=== PATIENT | male | born 1980 | race Caucasian/White ===

== ENCOUNTER 2020-11-14 16:17 | Emergency (ER) | payer MEDICAID ==
[2020-11-14] MEDS ORDERED: Morphine 4 MG/ML VIAL IVPUSH ONE (16:47)
[2020-11-14] MEDS ORDERED: Morphine 2 MG/ML SYRINGE IM ONE (16:56)
[2020-11-14 17:11] LABS: CHLORIDE,CL 105 mEq/L (98-106); SODIUM,NA 142 mEq/L (136-145)
--- NOTE | 2020-11-14 17:18 | EDM.PDOC ---
ED HPI GENERAL MEDICAL PROBLEM - General Chief Complaint: General Stated Complaint: LT BIG TOE -TURNING BLACK,LT FOOT BURNING Time Seen by Provider: 11/14/20 16:35 Source of Information: Reports: Patient History Limitations: Reports: No Limitations - History of Present Illness INITIAL COMMENTS - FREE TEXT/NARRATIVE: Jesús is a 39 yo male who presents to the ED with initial concerns of left big toe pain. States after he got out of the shower the tip of his toe was black. Admits to history of severe peripheral vascular disease and multiple heart attacks. Had 2-vessel CABG in 2010. States the toe isn't black anymore and would also like to be seen for his right flank pain. Admits he has been dealing with the pain for quite some time and has been having ureteral stent exchanged every 3 months or so. States he has a 14mm stone that is to big to pass. States he was in the ED in [place] a couple days ago d/t the flank pain. States he did have a CT scan and labs done. Admits to blood in his urine which has been ongoing as well. Requesting something for the pain. l great toe Pain Score (Numeric/FACES): 10 - Related Data Allergies Allergy/AdvReac Type Severity Reaction Status Date / Time sulfamethoxazole Allergy Hives Verified 11/14/20 16:26 [From Bactrim] trimethoprim [From Bactrim] Allergy Hives Verified 11/14/20 16:26 Home Meds: Home Meds Gabapentin [Neurontin] 600 mg PO TID 11/14/20 [History] Oxybutynin 10 mg PO TID 11/14/20 [History] Tamsulosin [Tamsulosin 24 Hr] 0.4 mg PO DAILY 11/14/20 [History] Warfarin [Coumadin] 7.5 mg PO DAILY 11/14/20 [History] traMADol [Ultram] 50 mg PO BID PRN 11/14/20 [History] Past Medical History Cardiovascular History: Reports: High Cholesterol, Hypertension, [place], PVD Genitourinary History: Reports: Renal Calculus - Past Surgical History Cardiovascular Surgical History: Reports: Vascular Surgery, Other (See Below) Other Cardiovascular Surgeries/Procedures: multiple venous stents in legs Social & Family History - Family History Family Medical History: No Pertinent Family History - Tobacco Use Tobacco Use Status *Q: Current Every Day Tobacco User Years of Tobacco use: 15 Packs/Tins Daily: 2 - Caffeine Use Caffeine Use: Reports: None - Recreational Drug Use Recreational Drug Use: No ED ROS GENERAL - Review of Systems Review Of Systems: See Below Constitutional: Denies: Fever, Chills HEENT: Reports: No Symptoms Respiratory: Reports: No Symptoms Cardiovascular: Reports: No Symptoms GI/Abdominal: Reports: Bloody Stool (villa red, minimal amount on occasion.). Denies: Abdominal Pain, Nausea, Vomiting : Reports: Flank Pain, Hematuria. Denies: Discharge, Dysuria, Urgency, Urinary Retention Musculoskeletal: Reports: Back Pain (right flank pain) Skin: Reports: Change in Color (short intermittent change in color of toe. ) Neurological: Reports: No Symptoms ED EXAM, GENERAL - Physical Exam Exam: See Below Exam Limited By: No Limitations General Appearance: Alert, WD/WN, Mild Distress Head: Atraumatic, Normocephalic Neck: Normal Inspection Respiratory/Chest: No Respiratory Distress, Lungs Clear, Normal Breath Sounds, No Accessory Muscle Use Cardiovascular: Regular Rate, Rhythm, No Edema, No Murmur GI/Abdominal: Normal Bowel Sounds, Soft, No Distention Back Exam: No: CVA Tenderness (L), CVA Tenderness (R) Extremities: Non-Tender, No Pedal Edema, Normal Capillary Refill Neurological: Alert, Oriented, Normal Cognition Psychiatric: Normal Affect, Normal Mood Skin Exam: Warm, Dry, Intact, Normal Color, No Rash. No: Pallor, Wound/Incision Course - Vital Signs Last Recorded V/S: Last Vital Signs Temp 97.8 F 11/14/20 16:28 Pulse 84 11/14/20 16:28 Resp 18 11/14/20 16:28 BP 127/87 11/14/20 16:46 Pulse Ox 96 11/14/20 16:28 - Orders/Labs/Meds Orders: Active Orders 24 hr Category Date Time Status Abdomen Pelvis wo Cont [CT] Stat Exams 11/14/20 16:47 Taken CULTURE URINE [RM] Stat Lab 11/14/20 17:01 Received Acetaminophen/oxyCODONE [Take Home: Acetaminophen/ Med 11/14/20 17:23 Once oxyCODON, 2 Tab Pack] 2 packet PO ONETIME ONE Ciprofloxacin [Take Home: Ciprofloxacin 500 MG, 2 Tab Med 11/14/20 17:24 Once Pack] 1 packet PO ONETIME ONE Lidocaine 1% [Xylocaine-MPF 1%] Med 11/14/20 17:22 Stat 2.1 ml INJECT NOW STA cefTRIAXone [Rocephin] Med 11/14/20 17:22 Once 1 gm IM ONETIME ONE Labs: Laboratory Tests 11/14/20 11/14/20 11/14/20 Range/Units 17:01 17:01 17:01 WBC 8.6 (4.0-11.0) 10^3/uL RBC 5.70 (4.50-6.00) x10^6/uL Hgb 17.1 (14.0-18.0) g/dL Hct 49.6 (42.0-52.0) % MCV 87.0 (83.0-97.0) fL MCH 30.0 (27.0-32.0) pg MCHC 34.5 (32.0-36.0) g/dL RDW Coeff of Balbir 14.7 (11.0-15.0) % Plt Count 264 (150-400) 10^3/uL Immature Gran % (Auto) 0.1 (0.0-4.9) % Neut % (Auto) 63.9 (41-71) % Lymph % (Auto) 26.2 (24-44) % [place] % (Auto) 6.0 (0-10) % Eos % (Auto) 3.6 (0-6) % Baso % (Auto) 0.2 (0-1) % Neut # (Auto) 5.46 (1.80-8.00) x10^3/uL Lymph # (Auto) 2.24 (0.60-5.00) 10^3/uL [place] # (Auto) 0.51 (0.00-1.50) 10^3/uL Eos # (Auto) 0.31 (0.00-1.50) 10^3/uL Baso # (Auto) 0.02 (0.00-0.50) 10^3/uL Immature Gran # (Auto) 0.01 (0.00-0.49) 10^3/uL PT (9.7-12.3) SEC INR (0.92-1.18) Sodium 142 (136-145) mEq/L Potassium 3.9 (3.5-5.0) mEq/L Chloride 105 (98-106) mEq/L Carbon Dioxide 25 (21-32) mmol/L BUN 15 (7-18) mg/dL Creatinine 1.2 (0.7-1.3) mg/dL Est Cr Clr Drug Dosing 83.47 mL/min Estimated GFR (MDRD) > 60 (>=60) mL/min Glucose 139 H (75-99) mg/dL Calcium 8.6 (8.4-10.1) mg/dL C-Reactive Protein < 0.2 L (0.2-0.8) mg/dL Urine Color Red (YELLOW) Urine Appearance Turbid (CLEAR) Urine pH 6.5 (4.5-8.0) Ur Specific [place] 1.015 (1.003-1.020) Urine Protein 30 H (NEGATIVE) mg/dL Urine Glucose (UA) Negative (NEGATIVE) mg/dL Urine Ketones Negative (NEGATIVE) mg/dL Urine Occult Blood Large H (NEGATIVE) Urine Nitrite Negative (NEGATIVE) Urine Bilirubin Negative (NEGATIVE) Urine Urobilinogen 0.2 (0.2-1.0) EU/dL Ur Leukocyte Esterase Small H (NEGATIVE) Urine RBC Packed H (0-5) /HPF Urine WBC 20-30 H (0-5) /HPF Ur Epithelial Cells Few H (NOT SEEN) /HPF 11/14/20 Range/Units 17:01 WBC (4.0-11.0) 10^3/uL RBC (4.50-6.00) x10^6/uL Hgb (14.0-18.0) g/dL Hct (42.0-52.0) % MCV (83.0-97.0) fL MCH (27.0-32.0) pg MCHC (32.0-36.0) g/dL RDW Coeff of Balbir (11.0-15.0) % Plt Count (150-400) 10^3/uL Immature Gran % (Auto) (0.0-4.9) % Neut % (Auto) (41-71) % Lymph % (Auto) (24-44) % [place] % (Auto) (0-10) % Eos % (Auto) (0-6) % Baso % (Auto) (0-1) % Neut # (Auto) (1.80-8.00) x10^3/uL Lymph # (Auto) (0.60-5.00) 10^3/uL [place] # (Auto) (0.00-1.50) 10^3/uL Eos # (Auto) (0.00-1.50) 10^3/uL Baso # (Auto) (0.00-0.50) 10^3/uL Immature Gran # (Auto) (0.00-0.49) 10^3/uL PT 21.6 H (9.7-12.3) SEC INR 2.08 H (0.92-1.18) Sodium (136-145) mEq/L Potassium (3.5-5.0) mEq/L Chloride (98-106) mEq/L Carbon Dioxide (21-32) mmol/L BUN (7-18) mg/dL Creatinine (0.7-1.3) mg/dL Est Cr Clr Drug Dosing mL/min Estimated GFR (MDRD) (>=60) mL/min Glucose (75-99) mg/dL Calcium (8.4-10.1) mg/dL C-Reactive Protein (0.2-0.8) mg/dL Urine Color (YELLOW) Urine Appearance (CLEAR) Urine pH (4.5-8.0) Ur Specific [place] (1.003-1.020) Urine Protein (NEGATIVE) mg/dL Urine Glucose (UA) (NEGATIVE) mg/dL Urine Ketones (NEGATIVE) mg/dL Urine Occult Blood (NEGATIVE) Urine Nitrite (NEGATIVE) Urine Bilirubin (NEGATIVE) Urine Urobilinogen (0.2-1.0) EU/dL Ur Leukocyte Esterase (NEGATIVE) Urine RBC (0-5) /HPF Urine WBC (0-5) /HPF Ur Epithelial Cells (NOT SEEN) /HPF Meds: Medications Discontinued Medications Generic Name Dose Route Start Last Admin Trade Name Freq PRN Reason Stop Dose Admin Morphine Sulfate 4 mg 11/14/20 16:47 11/14/20 16:57 Morphine 4 Mg/Ml Vial IVPUSH 11/14/20 16:48 Not Given ONETIME ONE Morphine Sulfate 4 mg 11/14/20 16:56 11/14/20 17:02 Morphine 2 Mg/Ml Syringe IM 11/14/20 16:57 4 mg ONETIME ONE Administration Departure - Departure Time of Disposition: 17:26 Disposition: Home, Self-Care 01 Clinical Impression: UTI, Urinary tract infectious disease, Right flank pain, chronic Pain due to ureteral stent Qualifiers: Encounter type: initial encounter Qualified Code(s): T83.84XA - Pain due to genitourinary prosthetic devices, implants and grafts, initial encounter - Discharge Information *PRESCRIPTION DRUG MONITORING PROGRAM REVIEWED*: Yes *COPY OF PRESCRIPTION DRUG MONITORING REPORT IN PATIENT YUE: No Instructions: Urinary Tract Infection, Adult, Managing Pain Without Opioids Referrals: Mary Vargas RESIZER OPERATOR [Primary Care Provider] - Forms: ED Department Discharge Additional Instructions: 1) Advise seeing urology in regards to chronic right flank pain with ureteral stent. 2) No kidney stones seen on CT of the abdomen/pelvis today. No significant hydronephrosis noted either 3) Urine is positive for UTI. Injection given in ED of Rocephin 4) Start Cipro 500mg twice a day, hand prescription along with take home pack given 5) Percocet to only be used for break thru pain, need to take ibuprofen 600- 800mg every 6-8 hours 6) Follow up if any concerns. Sepsis Event Note (ED) - Evaluation Sepsis Screening Result: No Definite Risk - Focused Exam Vital Signs: Vital Signs Temp Pulse Resp BP Pulse Ox 11/14/20 16:46 127/87 11/14/20 16:28 97.8 F 84 18 158/100 H 96 - Problem List & Annotations (1) Pain due to ureteral stent SNOMED Code(s): 940201911, 517122361, 190458286, 225628234 Code(s): T83.84XA - PAIN DUE TO GENITOURINARY PROSTH DEV/GRFT, INITIAL ENCOUNTER Status: Acute Current Visit: Yes Qualifiers: Encounter type: initial encounter Qualified Code(s): T83.84XA - Pain due to genitourinary prosthetic devices, implants and grafts, initial encounter (2) Right flank pain, chronic SNOMED Code(s): 998427134 Code(s): R10.9 - UNSPECIFIED ABDOMINAL PAIN; G89.29 - OTHER CHRONIC PAIN Status: Acute Current Visit: Yes (3) UTI, Urinary tract infectious disease SNOMED Code(s): 76149034 Code(s): N39.0 - URINARY TRACT INFECTION, SITE NOT SPECIFIED Status: Acute Current Visit: Yes - My Orders Last 24 Hours: My Active Orders 11/14/20 16:47 Abdomen Pelvis wo Cont [CT] Stat 11/14/20 17:01 CULTURE URINE [RM] Stat 11/14/20 17:22 cefTRIAXone [Rocephin] 1 gm IM ONETIME ONE 11/14/20 17:22 Lidocaine 1% [Xylocaine-MPF 1%] 2.1 ml INJECT NOW STA 11/14/20 17:23 Acetaminophen/oxyCODONE [Take Home: Acetaminophen/oxyCODON, 2 Tab Pack] 2 packet PO ONETIME ONE 11/14/20 17:24 Ciprofloxacin [Take Home: Ciprofloxacin 500 MG, 2 Tab Pack] 1 packet PO ONETIME ONE - Assessment/Plan Last 24 Hours: My Active Orders 11/14/20 16:47 Abdomen Pelvis wo Cont [CT] Stat 11/14/20 17:01 CULTURE URINE [RM] Stat 11/14/20 17:22 cefTRIAXone [Rocephin] 1 gm IM ONETIME ONE 11/14/20 17:22 Lidocaine 1% [Xylocaine-MPF 1%] 2.1 ml INJECT NOW STA 11/14/20 17:23 Acetaminophen/oxyCODONE [Take Home: Acetaminophen/oxyCODON, 2 Tab Pack] 2 packet PO ONETIME ONE 11/14/20 17:24 Ciprofloxacin [Take Home: Ciprofloxacin 500 MG, 2 Tab Pack] 1 packet PO ONETIME ONE Plan: Reviewed CT of the abdomen/pelvis. No obvious stone noted. Discussed needing to see urology in regards to stent. Will treat UTI tonight and culture is pending. See additional instructions. In regards to foot, no concerning findings as patient is anticoagulated with excellent capillary refill.
[2020-11-14] MEDS ORDERED: Lidocaine 1% 30 ML SDV INJECT STA (17:22)
[2020-11-14] MEDS ORDERED: cefTRIAXone 1 GM Vial IM ONE (17:22)
[2020-11-14] MEDS ORDERED: Take Home: Acetaminophen/oxyCODONE 325-5 MG, 2 Tab Pack PO ONE (17:23)
[2020-11-14] MEDS ORDERED: Take Home: Ciprofloxacin 500 MG Tab, 2 Tab Pack PO ONE (17:24)
== END 2020-11-14 17:47 | disposition home or self-care (01) ==
LOC: CC.ED 16:17
DX: T83.84XA Pain due to genitourinary prosthetic devices, implants and grafts, initial encounter (principal); N39.0 Urinary tract infection, site not specified; E78.00 Pure hypercholesterolemia, unspecified; I10 Essential (primary) hypertension; I25.2 Old myocardial infarction; Z79.01 Long term (current) use of anticoagulants; Z79.899 Other long term (current) drug therapy; Z72.0 Tobacco use; Z88.1 Allergy status to other antibiotic agents; Z95.1 Presence of aortocoronary bypass graft
CPT/HCPCS: 36415; 74176; 80048; 81001; 85025; 85610; 86140; 87086; 96372; 99284; A9270; J0696; J2270

== ENCOUNTER 2020-12-08 08:04 | Emergency (ER) | payer MEDICAID ==
[2020-12-08] MEDS ORDERED: Ketorolac 60 MG/2 ML SDV IM ONE (08:53)
[2020-12-08 09:21] LABS: AMPHETAMINES,URINE NEGATIVE (NEGATIVE); BARBITURATES,URINE NEGATIVE (NEGATIVE); BENZODIAZEPINE,URINE NEGATIVE (NEGATIVE); MDMA (ECSTASY), URINE NEGATIVE (NEGATIVE); METHADONE,URINE NEGATIVE (NEGATIVE); METHAMPHETAMINES,URINE NEGATIVE (NEGATIVE); OPIATES,URINE POSITIVE (NEGATIVE); OXYCODONE,URINE NEGATIVE (NEGATIVE); PHENCYCLIDINE,URINE NEGATIVE (NEGATIVE); TCA,URINE NEGATIVE (NEGATIVE)
[2020-12-08 09:24] LABS: CHLORIDE,CL 105 mEq/L (98-106); SODIUM,NA 140 mEq/L (136-145)
--- NOTE | 2020-12-08 10:42 | EDM.PDOC ---
ED HPI GENERAL MEDICAL PROBLEM - General Chief Complaint: Back Pain or Injury Stated Complaint: BACK AND STOMACH PAIN Time Seen by Provider: 12/08/20 08:40 Source of Information: Reports: Patient History Limitations: Reports: No Limitations - History of Present Illness INITIAL COMMENTS - FREE TEXT/NARRATIVE: Jesús is a 40 yo male who presents to the ED with complaints of ongoing right flank pain radiating around to his abdomen. Pain has been ongoing for over a month now. Has history of ureteral stent in place in the right ureter d/t a large obstructing stone. Has been seeing urology in [place] and also was suppose to see them a few weeks ago but missed his appointment d/t vehicle problems. Has also been seen at the [facility]. Was last seen here on the 14 of November and nothing has really changed. CT scan was completed at that time and did show no occlusion or obstruction at that time. Denies any fevers. No complaints with voiding. Patient admits the only thing that helps is pain medications. States bowel movements are normal. States no new onset of symptoms. Patient has blood in his urine which has been documented for a long time now per patient. Right Back Pain Score (Numeric/FACES): 5 - Related Data Allergies Allergy/AdvReac Type Severity Reaction Status Date / Time sulfamethoxazole Allergy Hives Verified 12/08/20 08:19 [From Bactrim] trimethoprim [From Bactrim] Allergy Hives Verified 12/08/20 08:19 Home Meds: Home Meds Gabapentin [Neurontin] 600 mg PO TID 11/14/20 [History] Oxybutynin 10 mg PO TID 11/14/20 [History] Tamsulosin [Tamsulosin 24 Hr] 0.4 mg PO DAILY 11/14/20 [History] Warfarin [Coumadin] 7.5 mg PO DAILY 11/14/20 [History] Past Medical History Cardiovascular History: Reports: High Cholesterol, Hypertension, [place], PVD Genitourinary History: Reports: Renal Calculus Psychiatric History: Reports: Anxiety, Depression - Past Surgical History Cardiovascular Surgical History: Reports: Coronary Artery Bypass, Vascular Surgery, Other (See Below) Other Cardiovascular Surgeries/Procedures: multiple venous stents in legs Social & Family History - Family History Family Medical History: No Pertinent Family History - Tobacco Use Tobacco Use Status *Q: Current Every Day Tobacco User Years of Tobacco use: 25 Packs/Tins Daily: 0.5 - Caffeine Use Caffeine Use: Reports: None ED ROS GENERAL - Review of Systems Review Of Systems: Comprehensive ROS is negative, except as noted in HPI. Constitutional: Denies: Fever, Chills, Decreased Appetite HEENT: Reports: No Symptoms Respiratory: Reports: No Symptoms Cardiovascular: Reports: No Symptoms GI/Abdominal: Reports: Abdominal Pain. Denies: Constipation, Diarrhea, Nausea, Vomiting : Reports: Flank Pain, Hematuria, Pain. Denies: Discharge, Dysuria, Frequency Musculoskeletal: Reports: No Symptoms Skin: Reports: No Symptoms ED EXAM,LOWER BACK PAIN/INJURY - Physical Exam Exam: See Below Exam Limited By: No Limitations General Appearance: Alert, WD/WN, No Apparent Distress Head: Atraumatic, Normocephalic Neck: Normal Inspection, Supple, Non-Tender Respiratory/Chest: No Respiratory Distress, Lungs Clear, Normal Breath Sounds, No Accessory Muscle Use Cardiovascular: Normal Peripheral Pulses, Regular Rate, Rhythm, No Edema, No Murmur GI/Abdominal: Normal Bowel Sounds, Soft, Non-Tender, No Organomegaly, No Distention Back Exam: CVA Tenderness (R). No: CVA Tenderness (L) Extremities: Normal Inspection, No Pedal Edema Neurological: Alert, Normal Mood/Affect, No Motor/Sensory Deficits Skin Exam: Warm, Dry, Intact, Normal Color, No Rash Course - Vital Signs Last Recorded V/S: Last Vital Signs Temp 97.2 F 12/08/20 08:29 Pulse 68 12/08/20 10:41 Resp 20 12/08/20 08:29 BP 131/88 12/08/20 10:41 Pulse Ox 97 12/08/20 08:29 - Orders/Labs/Meds Orders: Active Orders 24 hr Category Date Time Status CULTURE URINE [RM] Stat Lab 12/08/20 08:53 Received Labs: Laboratory Tests 12/08/20 12/08/20 12/08/20 Range/Units 08:53 08:53 09:00 WBC 9.6 (4.0-11.0) 10^3/uL RBC 5.74 (4.50-6.00) x10^6/uL Hgb 17.6 (14.0-18.0) g/dL Hct 50.8 (42.0-52.0) % MCV 88.5 (83.0-97.0) fL MCH 30.7 (27.0-32.0) pg MCHC 34.6 (32.0-36.0) g/dL RDW Coeff of Balbir 14.6 (11.0-15.0) % Plt Count 261 (150-400) 10^3/uL Immature Gran % (Auto) 0.2 (0.0-4.9) % Neut % (Auto) 76.5 H (41-71) % Lymph % (Auto) 15.3 L (24-44) % [place] % (Auto) 6.1 (0-10) % Eos % (Auto) 1.8 (0-6) % Baso % (Auto) 0.1 (0-1) % Neut # (Auto) 7.31 (1.80-8.00) x10^3/uL Lymph # (Auto) 1.46 (0.60-5.00) 10^3/uL [place] # (Auto) 0.58 (0.00-1.50) 10^3/uL Eos # (Auto) 0.17 (0.00-1.50) 10^3/uL Baso # (Auto) 0.01 (0.00-0.50) 10^3/uL Immature Gran # (Auto) 0.02 (0.00-0.49) 10^3/uL PT (9.7-12.3) SEC INR (0.92-1.18) Sodium (136-145) mEq/L Potassium (3.5-5.0) mEq/L Chloride (98-106) mEq/L Carbon Dioxide (21-32) mmol/L BUN (7-18) mg/dL Creatinine (0.7-1.3) mg/dL Est Cr Clr Drug Dosing mL/min Estimated GFR (MDRD) (>=60) mL/min Glucose (75-99) mg/dL Calcium (8.4-10.1) mg/dL Total Bilirubin (0.0-1.0) mg/dL AST (15-37) U/L ALT (12-78) U/L Alkaline Phosphatase (46-116) U/L C-Reactive Protein (0.2-0.8) mg/dL Total Protein (6.4-8.2) g/dL Albumin (3.4-5.0) g/dL Urine Color Red (YELLOW) Urine Appearance Cloudy (CLEAR) Urine pH 5.5 (4.5-8.0) Ur Specific [place] >= 1.030 H (1.003-1.020) Urine Protein >=300 H (NEGATIVE) mg/dL Urine Glucose (UA) 100 H (NEGATIVE) mg/dL Urine Ketones Trace H (NEGATIVE) mg/dL Urine Occult Blood Large H (NEGATIVE) Urine Nitrite Negative (NEGATIVE) Urine Bilirubin Small H (NEGATIVE) Urine Urobilinogen 0.2 (0.2-1.0) EU/dL Ur Leukocyte Esterase Trace H (NEGATIVE) Urine RBC >100 H (0-5) /HPF Urine WBC 0-5 (0-5) /HPF Ur Epithelial Cells Moderate H (NOT SEEN) /HPF Amorphous Sediment Moderate H (NOT SEEN) /HPF Urine Opiates Screen Positive H (NEGATIVE) Ur Oxycodone Screen Negative (NEGATIVE) Urine Methadone Screen Negative (NEGATIVE) Ur Barbiturates Screen Negative (NEGATIVE) U Tricyclic Antidepress Negative (NEGATIVE) Ur Phencyclidine Scrn Negative (NEGATIVE) Ur Amphetamine Screen Negative (NEGATIVE) U Methamphetamines Scrn Negative (NEGATIVE) Urine MDMA Screen Negative (NEGATIVE) U Benzodiazepines Scrn Negative (NEGATIVE) Urine Cocaine Screen Negative (NEGATIVE) U Marijuana (THC) Screen Positive H (NEGATIVE) 12/08/20 12/08/20 Range/Units 09:00 09:00 WBC (4.0-11.0) 10^3/uL RBC (4.50-6.00) x10^6/uL Hgb (14.0-18.0) g/dL Hct (42.0-52.0) % MCV (83.0-97.0) fL MCH (27.0-32.0) pg MCHC (32.0-36.0) g/dL RDW Coeff of Balbir (11.0-15.0) % Plt Count (150-400) 10^3/uL Immature Gran % (Auto) (0.0-4.9) % Neut % (Auto) (41-71) % Lymph % (Auto) (24-44) % [place] % (Auto) (0-10) % Eos % (Auto) (0-6) % Baso % (Auto) (0-1) % Neut # (Auto) (1.80-8.00) x10^3/uL Lymph # (Auto) (0.60-5.00) 10^3/uL [place] # (Auto) (0.00-1.50) 10^3/uL Eos # (Auto) (0.00-1.50) 10^3/uL Baso # (Auto) (0.00-0.50) 10^3/uL Immature Gran # (Auto) (0.00-0.49) 10^3/uL PT 20.1 H (9.7-12.3) SEC INR 1.92 H (0.92-1.18) Sodium 140 (136-145) mEq/L Potassium 4.1 (3.5-5.0) mEq/L Chloride 105 (98-106) mEq/L Carbon Dioxide 26 (21-32) mmol/L BUN 13 (7-18) mg/dL Creatinine 1.3 (0.7-1.3) mg/dL Est Cr Clr Drug Dosing 76.29 mL/min Estimated GFR (MDRD) > 60 (>=60) mL/min Glucose 160 H (75-99) mg/dL Calcium 9.0 (8.4-10.1) mg/dL Total Bilirubin 0.6 (0.0-1.0) mg/dL AST 19 (15-37) U/L ALT 29 (12-78) U/L Alkaline Phosphatase 110 (46-116) U/L C-Reactive Protein < 0.2 L (0.2-0.8) mg/dL Total Protein 8.0 (6.4-8.2) g/dL Albumin 3.8 (3.4-5.0) g/dL Urine Color (YELLOW) Urine Appearance (CLEAR) Urine pH (4.5-8.0) Ur Specific [place] (1.003-1.020) Urine Protein (NEGATIVE) mg/dL Urine Glucose (UA) (NEGATIVE) mg/dL Urine Ketones (NEGATIVE) mg/dL Urine Occult Blood (NEGATIVE) Urine Nitrite (NEGATIVE) Urine Bilirubin (NEGATIVE) Urine Urobilinogen (0.2-1.0) EU/dL Ur Leukocyte Esterase (NEGATIVE) Urine RBC (0-5) /HPF Urine WBC (0-5) /HPF Ur Epithelial Cells (NOT SEEN) /HPF Amorphous Sediment (NOT SEEN) /HPF Urine Opiates Screen (NEGATIVE) Ur Oxycodone Screen (NEGATIVE) Urine Methadone Screen (NEGATIVE) Ur Barbiturates Screen (NEGATIVE) U Tricyclic Antidepress (NEGATIVE) Ur Phencyclidine Scrn (NEGATIVE) Ur Amphetamine Screen (NEGATIVE) U Methamphetamines Scrn (NEGATIVE) Urine MDMA Screen (NEGATIVE) U Benzodiazepines Scrn (NEGATIVE) Urine Cocaine Screen (NEGATIVE) U Marijuana (THC) Screen (NEGATIVE) Meds: Medications Discontinued Medications Generic Name Dose Route Start Last Admin Trade Name Freq PRN Reason Stop Dose Admin Ketorolac Tromethamine 60 mg 12/08/20 08:53 12/08/20 08:58 Ketorolac 60 Mg/2 Ml Sdv IM 12/08/20 08:54 60 mg ONETIME ONE Administration Departure - Departure Time of Disposition: 10:45 Disposition: Home, Self-Care 01 Clinical Impression: Right flank pain, chronic Pain due to ureteral stent Qualifiers: Encounter type: initial encounter Qualified Code(s): T83.84XA - Pain due to genitourinary prosthetic devices, implants and grafts, initial encounter - Discharge Information Referrals: PCP,None [Primary Care Provider] - Forms: ED Department Discharge Additional Instructions: 1) Labs were all stable today, no concerning findings 2) Advise again need to see urologist as stent has been in place for over a month now 3) Tramadol 50mg - 1 tablet twice a day for break thru pain 4) May use Tylenol otherwise as directed on bottle 5) Encourage establishing care, especially being on Coumadin as well 6) Push fluids 7) Follow up if any concerns. Sepsis Event Note (ED) - Evaluation Sepsis Screening Result: No Definite Risk - Focused Exam Vital Signs: Vital Signs Temp Pulse Resp BP Pulse Ox 12/08/20 10:41 68 131/88 12/08/20 08:29 97.2 F 94 20 141/101 H 97 - Problem List & Annotations (1) Pain due to ureteral stent SNOMED Code(s): 622071954, 828642003, [id number] Code(s): T83.84XA - PAIN DUE TO GENITOURINARY PROSTH DEV/GRFT, INITIAL ENCOUNTER Status: Acute Current Visit: Yes Qualifiers: Encounter type: initial encounter Qualified Code(s): T83.84XA - Pain due to genitourinary prosthetic devices, implants and grafts, initial encounter (2) Right flank pain, chronic SNOMED Code(s): 731200595 Code(s): R10.9 - UNSPECIFIED ABDOMINAL PAIN; G89.29 - OTHER CHRONIC PAIN Status: Acute Current Visit: Yes - My Orders Last 24 Hours: My Active Orders 12/08/20 08:53 CULTURE URINE [RM] Stat - Assessment/Plan Last 24 Hours: My Active Orders 12/08/20 08:53 CULTURE URINE [RM] Stat Plan: Discussed findings with Jesús. Recommend using pain medication only for break through pain. Encourage seeing urologist and primary care provider d/t chronic complaints. Please see additional instructions. Elected to not proceed with CT d/t chronicity and recent CT scan. Blood pressure did improve as well after Toradol given along with pain control. Last BP 131/88.
== END 2020-12-08 10:53 | disposition home or self-care (01) ==
LOC: CC.ED 08:04
DX: T83.84XA Pain due to genitourinary prosthetic devices, implants and grafts, initial encounter (principal); E78.00 Pure hypercholesterolemia, unspecified; I10 Essential (primary) hypertension; I25.2 Old myocardial infarction; Z95.1 Presence of aortocoronary bypass graft; Z72.0 Tobacco use; Z88.1 Allergy status to other antibiotic agents; Z79.01 Long term (current) use of anticoagulants; Z79.899 Other long term (current) drug therapy
CPT/HCPCS: 36415; 80053; 80305-QW; 81001; 85025; 85610; 86140; 96372; 99284; J1885

== ENCOUNTER 2020-12-13 15:58 | Emergency (ER) | payer MEDICAID ==
[2020-12-13] MEDS: Ketorolac 60 MG/2 ML SDV IM ONE (16:42)
[2020-12-13 17:01] LABS: CHLORIDE,CL 106 mEq/L (98-106); SODIUM,NA 144 mEq/L (136-145)
[2020-12-13 17:02] LABS: AMPHETAMINES,URINE NEGATIVE (NEGATIVE); BARBITURATES,URINE NEGATIVE (NEGATIVE); BENZODIAZEPINE,URINE NEGATIVE (NEGATIVE); MDMA (ECSTASY), URINE NEGATIVE (NEGATIVE); METHADONE,URINE NEGATIVE (NEGATIVE); METHAMPHETAMINES,URINE NEGATIVE (NEGATIVE); OPIATES,URINE NEGATIVE (NEGATIVE); OXYCODONE,URINE NEGATIVE (NEGATIVE); PHENCYCLIDINE,URINE NEGATIVE (NEGATIVE); TCA,URINE NEGATIVE (NEGATIVE)
--- NOTE | 2020-12-13 17:08 | EDM.PDOC ---
<Omar Gonzalez - Last Filed: 12/13/20 17:37> ED HPI GENERAL MEDICAL PROBLEM - General Chief Complaint: Back Pain or Injury Stated Complaint: PAIN IN MIDDLE BACK Time Seen by Provider: 12/13/20 16:25 Source of Information: Reports: Patient History Limitations: Reports: No Limitations - Related Data Allergies Allergy/AdvReac Type Severity Reaction Status Date / Time sulfamethoxazole Allergy Hives Verified 12/13/20 16:28 [From Bactrim] trimethoprim [From Bactrim] Allergy Hives Verified 12/13/20 16:28 Home Meds: Home Meds Gabapentin [Neurontin] 600 mg PO TID 11/14/20 [History] Oxybutynin 10 mg PO TID 11/14/20 [History] Tamsulosin [Tamsulosin 24 Hr] 0.4 mg PO DAILY 11/14/20 [History] Warfarin [Coumadin] 7.5 mg PO DAILY 11/14/20 [History] ED ROS GENERAL - Review of Systems Review Of Systems: Comprehensive ROS is negative, except as noted in HPI. Constitutional: Denies: Fever, Chills, Decreased Appetite HEENT: Reports: No Symptoms Respiratory: Reports: No Symptoms Cardiovascular: Reports: No Symptoms GI/Abdominal: Reports: Abdominal Pain. Denies: Constipation, Diarrhea, Nausea, Vomiting : Reports: Flank Pain, Hematuria (chronic). Denies: Discharge, Frequency, Urgency Musculoskeletal: Reports: Back Pain Skin: Reports: No Symptoms Neurological: Reports: No Symptoms ED EXAM, GI/ABD - Physical Exam Exam: See Below Exam Limited By: No Limitations General Appearance: Alert, No Apparent Distress Neck: Normal Inspection, Supple Respiratory/Chest: No Respiratory Distress, Lungs Clear, Normal Breath Sounds, No Accessory Muscle Use Cardiovascular: Normal Peripheral Pulses, Regular Rate, Rhythm, No Edema, No Mur mur GI/Abdominal Exam: Normal Bowel Sounds, Soft, Non-Tender, No Organomegaly, No Distention Back Exam: No: CVA Tenderness (L), Paraspinal Tenderness, Vertebral Tenderness Extremities: Normal Inspection Neurological: Alert, Oriented, Normal Cognition, No Motor/Sensory Deficits Psychiatric: Normal Affect (Patient is calm and doesn't appear to be in any distress. ), Normal Mood Departure - Departure Time of Disposition: 17:56 Disposition: Home, Self-Care 01 Clinical Impression: Right flank pain, chronic Pain due to ureteral stent Qualifiers: Encounter type: initial encounter Qualified Code(s): T83.84XA - Pain due to genitourinary prosthetic devices, implants and grafts, initial encounter - Discharge Information *PRESCRIPTION DRUG MONITORING PROGRAM REVIEWED*: Yes Referrals: Kenna Jimenez PA [Primary Care Provider] - Forms: ED Department Discharge Additional Instructions: 1) Tramadol 50mg - 1 tablet twice a day for break thru pain. 2) Need to schedule an appointment in clinic for referral to urology and further ancillary testing 3) If any fevers/worsening of pain or any concerns at all, advise returning for reevaluation. - Problem List & Annotations (1) Pain due to ureteral stent SNOMED Code(s): 757047739, 753382502, 403623590 Code(s): T83.84XA - PAIN DUE TO GENITOURINARY PROSTH DEV/GRFT, INITIAL ENCOUNTER Status: Acute Qualifiers: Encounter type: initial encounter Qualified Code(s): T83.84XA - Pain due to genitourinary prosthetic devices, implants and grafts, initial encounter (2) Right flank pain, chronic SNOMED Code(s): 087682118 Code(s): R10.9 - UNSPECIFIED ABDOMINAL PAIN; G89.29 - OTHER CHRONIC PAIN Status: Acute - Assessment/Plan Plan: Patient is stable and confirmed it is ongoing chronic pain. I discussed into length, as I have prior, that he needs to follow up with his primary or urologist to discuss chronic symptoms. Patient will establish care here this week in [place] and will discuss referral at that time. Will need to get all outside records as well. Patient was in agreement to refrain from any further CT scans tonight as the pain has been chronic and did have a CT scan just recently. Patient is in satisfactory condition at discharge. <Kenna Jimenez - Last Filed: 12/13/20 19:06> ED HPI GENERAL MEDICAL PROBLEM - General Source of Information: Reports: Patient History Limitations: Reports: No Limitations - History of Present Illness INITIAL COMMENTS - FREE TEXT/NARRATIVE: Jesús is a 40 year old who presents to ER with right flank pain, right upper quadrant pain and nausea. Has a history of kidney issues, has had 4 stents placed in his kidney. STates has been seen by urology in the past and has a 14 mm stone in his kidney and they place the stent to avoid the stone from blocking his ureter. Always has blood in his urine so unsure if noted any difference. Has pain now that is much worse in his right flank. Had tramadol that he used when it was more severe but ran out of that yesterday. Says he needs to see the urologist again but needs a referral. Also states he has been to the chiropractor for this many times and it does help. Unsure if it is his kidney or his back but cannot handle the pain. States "maybe my life should be over since no one ever wants to help me deal with this pain.". No fevers. No vomiting. Denies diarrhea. Duration: Chronic, Waxing/Waning Location: Reports: Back Quality: Reports: Ache Severity: Severe Improves with: Reports: Medication Associated Symptoms: Reports: Nausea/Vomiting. Denies: Confusion, Chest Pain, Cough, Fever/Chills, Loss of Appetite, Malaise, Shortness of Breath, Weakness Right Middle Back Pain Score (Numeric/FACES): 9 Past Medical History Cardiovascular History: Reports: High Cholesterol, Hypertension, DC, PVD Genitourinary History: Reports: Renal Calculus Psychiatric History: Reports: Anxiety, Depression - Past Surgical History Cardiovascular Surgical History: Reports: Coronary Artery Bypass, Vascular Surgery, Other (See Below) Other Cardiovascular Surgeries/Procedures: multiple venous stents in legs Social & Family History - Family History Family Medical History: No Pertinent Family History - Tobacco Use Tobacco Use Status *Q: Current Every Day Tobacco User Years of Tobacco use: 25 Packs/Tins Daily: 0.5 - Caffeine Use Caffeine Use: Reports: None ED ROS GENERAL - Review of Systems Review Of Systems: See Below Course - Vital Signs Last Recorded V/S: Last Vital Signs Temp 97.2 F 12/13/20 16:30 Pulse 86 12/13/20 16:30 Resp 20 12/13/20 16:30 BP 146/93 H 12/13/20 16:30 Pulse Ox 98 12/13/20 16:30 - Orders/Labs/Meds Labs: Laboratory Tests 12/13/20 12/13/20 12/13/20 Range/Units 16:36 16:36 16:45 WBC 7.4 (4.0-11.0) 10^3/uL RBC 5.73 (4.50-6.00) x10^6/uL Hgb 17.4 (14.0-18.0) g/dL Hct 51.1 (42.0-52.0) % MCV 89.2 (83.0-97.0) fL MCH 30.4 (27.0-32.0) pg MCHC 34.1 (32.0-36.0) g/dL RDW Coeff of Balbir 14.3 (11.0-15.0) % Plt Count 282 (150-400) 10^3/uL Immature Gran % (Auto) 0.0 (0.0-4.9) % Neut % (Auto) 63.2 (41-71) % Lymph % (Auto) 27.1 (24-44) % Nance % (Auto) 6.2 (0-10) % Eos % (Auto) 3.1 (0-6) % Baso % (Auto) 0.4 (0-1) % Neut # (Auto) 4.70 (1.80-8.00) x10^3/uL Lymph # (Auto) 2.01 (0.60-5.00) 10^3/uL Nance # (Auto) 0.46 (0.00-1.50) 10^3/uL Eos # (Auto) 0.23 (0.00-1.50) 10^3/uL Baso # (Auto) 0.03 (0.00-0.50) 10^3/uL Immature Gran # (Auto) 0.00 (0.00-0.49) 10^3/uL PT (9.7-12.3) SEC INR (0.92-1.18) Sodium (136-145) mEq/L Potassium (3.5-5.0) mEq/L Chloride (98-106) mEq/L Carbon Dioxide (21-32) mmol/L BUN (7-18) mg/dL Creatinine (0.7-1.3) mg/dL Est Cr Clr Drug Dosing mL/min Estimated GFR (MDRD) (>=60) mL/min Glucose (75-99) mg/dL Calcium (8.4-10.1) mg/dL Total Bilirubin (0.0-1.0) mg/dL AST (15-37) U/L ALT (12-78) U/L Alkaline Phosphatase (46-116) U/L C-Reactive Protein (0.2-0.8) mg/dL Total Protein (6.4-8.2) g/dL Albumin (3.4-5.0) g/dL Urine Color Yu (YELLOW) Urine Appearance Cloudy (CLEAR) Urine pH 6.0 (4.5-8.0) Ur Specific [place] >= 1.030 H (1.003-1.020) Urine Protein >=300 H (NEGATIVE) mg/dL Urine Glucose (UA) 100 H (NEGATIVE) mg/dL Urine Ketones Trace H (NEGATIVE) mg/dL Urine Occult Blood Large H (NEGATIVE) Urine Nitrite Negative (NEGATIVE) Urine Bilirubin Small H (NEGATIVE) Urine Urobilinogen 0.2 (0.2-1.0) EU/dL Ur Leukocyte Esterase Trace H (NEGATIVE) Urine RBC >100 H (0-5) /HPF Urine WBC 5-10 H (0-5) /HPF Ur Epithelial Cells Few H (NOT SEEN) /HPF Urine Bacteria Few H (NOT SEEN) /HPF Urinalysis Comment Urine Opiates Screen Negative (NEGATIVE) Ur Oxycodone Screen Negative (NEGATIVE) Urine Methadone Screen Negative (NEGATIVE) Ur Barbiturates Screen Negative (NEGATIVE) U Tricyclic Antidepress Negative (NEGATIVE) Ur Phencyclidine Scrn Negative (NEGATIVE) Ur Amphetamine Screen Negative (NEGATIVE) U Methamphetamines Scrn Negative (NEGATIVE) Urine MDMA Screen Negative (NEGATIVE) U Benzodiazepines Scrn Negative (NEGATIVE) Urine Cocaine Screen Negative (NEGATIVE) U Marijuana (THC) Screen Positive H (NEGATIVE) 12/13/20 12/13/20 Range/Units 16:45 16:45 WBC (4.0-11.0) 10^3/uL RBC (4.50-6.00) x10^6/uL Hgb (14.0-18.0) g/dL Hct (42.0-52.0) % MCV (83.0-97.0) fL MCH (27.0-32.0) pg MCHC (32.0-36.0) g/dL RDW Coeff of Balbir (11.0-15.0) % Plt Count (150-400) 10^3/uL Immature Gran % (Auto) (0.0-4.9) % Neut % (Auto) (41-71) % Lymph % (Auto) (24-44) % Nance % (Auto) (0-10) % Eos % (Auto) (0-6) % Baso % (Auto) (0-1) % Neut # (Auto) (1.80-8.00) x10^3/uL Lymph # (Auto) (0.60-5.00) 10^3/uL Nance # (Auto) (0.00-1.50) 10^3/uL Eos # (Auto) (0.00-1.50) 10^3/uL Baso # (Auto) (0.00-0.50) 10^3/uL Immature Gran # (Auto) (0.00-0.49) 10^3/uL PT 14.1 H (9.7-12.3) SEC INR 1.31 H (0.92-1.18) Sodium 144 (136-145) mEq/L Potassium 3.8 (3.5-5.0) mEq/L Chloride 106 (98-106) mEq/L Carbon Dioxide 27 (21-32) mmol/L BUN 11 (7-18) mg/dL Creatinine 1.1 (0.7-1.3) mg/dL Est Cr Clr Drug Dosing 90.16 mL/min Estimated GFR (MDRD) > 60 (>=60) mL/min Glucose 128 H (75-99) mg/dL Calcium 8.9 (8.4-10.1) mg/dL Total Bilirubin 0.7 (0.0-1.0) mg/dL AST 22 (15-37) U/L ALT 34 (12-78) U/L Alkaline Phosphatase 110 (46-116) U/L C-Reactive Protein < 0.2 L (0.2-0.8) mg/dL Total Protein 7.8 (6.4-8.2) g/dL Albumin 3.7 (3.4-5.0) g/dL Urine Color (YELLOW) Urine Appearance (CLEAR) Urine pH (4.5-8.0) Ur Specific [place] (1.003-1.020) Urine Protein (NEGATIVE) mg/dL Urine Glucose (UA) (NEGATIVE) mg/dL Urine Ketones (NEGATIVE) mg/dL Urine Occult Blood (NEGATIVE) Urine Nitrite (NEGATIVE) Urine Bilirubin (NEGATIVE) Urine Urobilinogen (0.2-1.0) EU/dL Ur Leukocyte Esterase (NEGATIVE) Urine RBC (0-5) /HPF Urine WBC (0-5) /HPF Ur Epithelial Cells (NOT SEEN) /HPF Urine Bacteria (NOT SEEN) /HPF Urinalysis Comment Urine Opiates Screen (NEGATIVE) Ur Oxycodone Screen (NEGATIVE) Urine Methadone Screen (NEGATIVE) Ur Barbiturates Screen (NEGATIVE) U Tricyclic Antidepress (NEGATIVE) Ur Phencyclidine Scrn (NEGATIVE) Ur Amphetamine Screen (NEGATIVE) U Methamphetamines Scrn (NEGATIVE) Urine MDMA Screen (NEGATIVE) U Benzodiazepines Scrn (NEGATIVE) Urine Cocaine Screen (NEGATIVE) U Marijuana (THC) Screen (NEGATIVE) Meds: Medications Discontinued Medications Generic Name Dose Route Start Last Admin Trade Name Freq PRN Reason Stop Dose Admin Ketorolac Tromethamine 60 mg 12/13/20 16:36 12/13/20 16:42 Ketorolac 60 Mg/2 Ml Sdv IM 12/13/20 16:37 60 mg ONETIME ONE Administration Tramadol HCl 2 packet 12/13/20 17:56 12/13/20 18:04 Take Home: Tramadol 50 Mg, 4 Tab Pack PO 12/13/20 17:57 2 packet ONETIME ONE Administration Departure - Departure Condition: Good Sepsis Event Note (ED) - Evaluation Sepsis Screening Result: No Definite Risk - Focused Exam Vital Signs: Vital Signs Temp Pulse Resp BP Pulse Ox 12/13/20 16:30 97.2 F 86 20 146/93 H 98
[2020-12-13] MEDS: Take Home: traMADol 50 MG, 4 Tab Pack PO ONE (18:04)
== END 2020-12-13 18:14 | disposition home or self-care (01) ==
LOC: CC.ED 15:58
DX: T83.84XA Pain due to genitourinary prosthetic devices, implants and grafts, initial encounter (principal); I10 Essential (primary) hypertension; I25.2 Old myocardial infarction; F17.210 Nicotine dependence, cigarettes, uncomplicated; Z88.2 Allergy status to sulfonamides; Z88.8 Allergy status to other drugs, medicaments and biological substances; Z79.899 Other long term (current) drug therapy
CPT/HCPCS: 36415; 80053; 80305-QW; 81001; 85025; 85610; 86140; 96372; 99284; A9270-GY; J1885

== ENCOUNTER 2021-05-09 16:51 | Emergency (ER) | payer BC, MEDICAID ==
[2021-05-09] MEDS ORDERED: Sodium Chloride 0.9% 1,000 ML ONE ×2 (16:53→19:09)
[2021-05-09] MEDS ORDERED: fentaNYL 50 MCG/ML SDV ONE ×3 (17:01→19:13)
[2021-05-09] MEDS: Nitroglycerin 0.4 MG Tab.SL SL PRN ×2 (17:05→17:10)
[2021-05-09 17:25] LABS: CHLORIDE,CL 102 mEq/L (98-106); SODIUM,NA 139 mEq/L (136-145)
[2021-05-09 17:27] LABS: PTT,PARTIAL THROMBOPLSTIN TIME 31.2 SEC (23.2-32.3)
[2021-05-09] MEDS ORDERED: Morphine 2 MG/ML SYRINGE ONE (17:33)
[2021-05-09] MEDS: Sodium Chloride 0.9% 1,000 ML IV SCH ×2 (17:35→19:38)
[2021-05-09] MEDS ORDERED: Nitroglycerin/D5W 25 MG/250 ML BOTTLE ONE (18:07)
[2021-05-09] MEDS ORDERED: Heparin Sodium/0.45% NaCl 500 ML ONE (18:07)
[2021-05-09] MEDS ORDERED: Morphine 2 MG/ML SYRINGE IVPUSH ONE (18:08)
[2021-05-09] MEDS ORDERED: fentaNYL 50 MCG/ML SDV IVPUSH ONE ×5 (18:08→20:38)
[2021-05-09] MEDS ORDERED: Aspirin 81 MG Tab.Chew PO ONE (18:14)
[2021-05-09] MEDS ORDERED: Clopidogrel 75 MG Tab ONE (18:19)
[2021-05-09] MEDS ORDERED: Nitroglycerin/D5W 25 MG/250 ML BOTTLE IV SCH (18:30)
[2021-05-09] MEDS ORDERED: Clopidogrel 75 MG Tab PO ONE (18:46)
[2021-05-09] MEDS ORDERED: Tenecteplase 50 MG Kit ONE (19:06)
[2021-05-09] MEDS ORDERED: Heparin Sodium/0.45% NaCl 500 ML IV SCH (19:30)
[2021-05-09] MEDS ORDERED: Tenecteplase 50 MG Kit IV STA (20:15)
== END 2021-05-09 19:41 ==
LOC: CC.ED 16:51
DX: I21.9 Acute myocardial infarction, unspecified (principal); E78.00 Pure hypercholesterolemia, unspecified; I10 Essential (primary) hypertension; I25.2 Old myocardial infarction; Z88.1 Allergy status to other antibiotic agents; Z79.01 Long term (current) use of anticoagulants; Z79.899 Other long term (current) drug therapy; Z72.0 Tobacco use
CPT/HCPCS: 36415; 71045; 80053; 82550; 83615; 83690; 84484; 85025; 85610; 85730; 93005; 96365; 96375; 96376; 99284; 99285-25; A9270-GY; J1644; J2270; J3010; J3101; J3490; J7030